=== PATIENT | female | born 1970 | race Caucasian/White ===

== ENCOUNTER → 2017-05-20 | Outpatient (CLI) | payer BC ==
--- NOTE | 2017-05-20 16:41 | CONS ---
CONSULTATION This patient is a 46-year-old lady who has been evaluated in the sleep center for possible obstructive sleep apnea-hypopnea syndrome. HISTORY OF PRESENT ILLNESS/SLEEP-WAKE EVALUATION: Patient's usual sleep schedule is from 11 p.m. to 7 a.m. She has more than 3 times awakenings from sleep with snoring and witnessed episodes of stopped breathing. She has episodes of nocturia during the night. During the day she has some questionable problem with memory and concentration. [place] Sleepiness Scale is in normal range, 6. She usually does not take naps during the day. PAST MEDICAL HISTORY: 1. Hypertension. 2. Hyperlipidemia. 3. Cysts in ovary. PAST SURGICAL HISTORY: 1. Surgery for right hip fracture. 2. Left ACL. 3. Uterus ablation. MEDICATIONS: 1. Metformin. 2. Lipitor. 3. Prilosec. 4. Lisinopril hydrochlorothiazide. SOCIAL HISTORY: Negative for smoking. Alcohol consumption occasional. REVIEW OF SYSTEMS: Awakenings from sleep. FAMILY HISTORY: Hypertension, heart problems, hyperlipidemia, snoring. PHYSICAL EXAMINATION: This is a 46-year-old lady without distress. VITAL SIGNS: BP 135/77, HR 100, RR 16, height 5 feet 5 inches, weight 261, BMI 43.5. Neck 15 inches in circumference. Temperature 97.4, oxygen saturation on room air 96%. HEENT: PERRLA, EOMI. Evaluation of oropharynx showed tongue protrudes midline; practically normal position of soft palate, but tonsils are average size. Some restriction of nasal breathing. NECK: Supple. No JVD. Thyroid is not palpable. LUNGS: Clear to percussion and to auscultation. Good air exchange. No wheezing or rhonchi. HEART: S1, S2 irregularly irregular. ABDOMEN: Obese. EXTREMITIES: No clubbing or cyanosis. CELLOPHANE BAG MACHINE OPERATOR: Awake, alert and oriented x3. Cranial nerves 2 to 7 intact. There is no fasciculation or atrophy noted. No focal deficits observed. IMPRESSION: 1. Snoring, witnessed episodes of stopped breathing during sleep, awakenings from sleep with nocturia, restriction of nasal breathing; obstructive sleep apnea- hypopnea syndrome. 2. Hypertension. 3. Acid reflux. 4. Cysts in ovary. 5. Hyperlipidemia. 6. Status post surgery for left ACL. 7. Status post right humerus fracture with surgical treatment. 8. Status post uterus ablation. PLAN: 1. Polysomnography for evaluation of patient's breathing during sleep. 2. CPAP/BiPAP titration if sleep study confirms obstructive sleep apnea-hypopnea syndrome. 3. Preferable position during sleep on the side. 4. No driving if patient feels any sleepiness. Patient is aware of civil and criminal liability for unsafe driving. 5. I will see patient for follow-up visit to explain results of testing and following plan. Thank you very much for referring this patient for consultation. Sincerely, Chester Sanchez MD, PhD, FAASM Diplomat of [employer] Board of [employer] Medicine Art Historian of [facility] [place] MMODL / IJN: [id number] /
== END | disposition home or self-care (01) ==
LOC: SLEEP 13:59
PROVIDERS: ATTEND Internal Medicine
DX: G47.33 Obstructive sleep apnea (adult) (pediatric) (principal); I10 Essential (primary) hypertension; K21.9 Gastro-esophageal reflux disease without esophagitis; E78.5 Hyperlipidemia, unspecified; N83.201 Unspecified ovarian cyst, right side; N83.202 Unspecified ovarian cyst, left side; Z98.890 Other specified postprocedural states
CPT/HCPCS: 99211

== ENCOUNTER → 2017-08-19 | Outpatient (CLI) | payer BC ==
--- NOTE | 2017-08-19 11:55 | PN ---
PROGRESS NOTE DATE OF SERVICE: 08/19/2017 A 46-year-old lady has been followed in sleep center for treatment of obstructive sleep apnea-hypopnea syndrome. Recently patient home sleep apnea test, which showed severe sleep apnea. I discussed results of this test with the patient in details. The patient had CPAP and BiPAP titration in the sleep center. The best results was reached on the pressure 19/15 cm of water. Subsequently, patient was started on treatment with BiPAP at home with the pressure 19/15 cm of water. The patient is trying to use equipment every night, but has difficulties to tolerate pressure, especially when she wakes up. She feels the pressure is too much and she stays in bed for some periods of time with the machine, but without sleep. [place] Sleepiness Scale today is 8. I checked the patient's PAP unit maximal inspiratory pressure 19, minimal expiratory pressure is 15. Usage is 100% of the time more than 4 hours, average 4.8 hours. Leak is 5 L/minute which is perfect. Apnea-hypopnea index for the last night is only 3.3 per hour. For the last month, it is 5.0. MEDICATIONS: Metformin, Lipitor, Prilosec, lisinopril. PHYSICAL EXAM: During physical exam, patient in no distress. VITAL SIGNS: BP 134/64, HR 88, RR 16, weight 266, temp 97.6, oxygen saturation room air 98% HEENT PERRLA, EOMI. Oropharynx extremely low position of soft palate. NECK: Supple, no JVD. Thyroid is not palpable. LUNGS: Clear to percussion and to auscultation. Good air exchange. No wheezing or rhonchi. HEART: S1, S2 regular. No murmurs, gallops, or rubs. ABDOMEN: Obese. EXTREMITIES: No clubbing or cyanosis. LEAN CONSULTANT: Awake, alert, and oriented X3. Cranial nerves 2 to 7 intact. There is no fasciculation or atrophy. noted. No focal deficits observed. IMPRESSION: 1. Severe obstructive sleep apnea-hypopnea syndrome; apnea-hypopnea index 40.3 with oxygen saturation of 77%. The patient demonstrated 100% compliance with treatment benefitting from treatment, but has some difficulties with tolerating pressure. 2. Hypertension. 3. Hyperlipidemia. 4. Obesity. 5. Ovarian cyst. 6. Status post uterus ablation. 7. Status post right fracture surgical treatment. 8. Status post surgical treatment of left ACL. PLAN: 1. I decreased minimal expiratory pressure to 6 cm of water. Maximal inspiratory pressure 19 and pressure support will continue to be 4. I will keep ramp at the same time for 40 minutes. 2. Patient will continue to use equipment every night. 3. Losing weight. 4. Sleep hygiene with regular time in bed for at least 8 hours. 5. No driving if feeling sleepiness. Thank you very much for allowing me to participate in management of your patient. Sincerely, Chester Sanchez MD, PhD, FAASM Diplomat of [employer] Medicine Fitness Technician of [facility] [place] MMODL / WAYLONN: [id number] /
== END | disposition home or self-care (01) ==
LOC: SLEEP 10:26
PROVIDERS: ATTEND Internal Medicine
DX: G47.33 Obstructive sleep apnea (adult) (pediatric) (principal); I10 Essential (primary) hypertension; E78.5 Hyperlipidemia, unspecified; E66.9 Obesity, unspecified; N83.209 Unspecified ovarian cyst, unspecified side; Z98.890 Other specified postprocedural states

== ENCOUNTER → 2017-10-14 | Outpatient (CLI) | payer BC ==
--- NOTE | 2017-10-14 11:30 | SFUN ---
SLEEP STUDY FOLLOW UP NOTE A 47-year-old lady has been followed in Sleep Center for treatment of severe obstructive sleep apnea-hypopnea syndrome. During previous visit, she has had some problem with the usage of her BiPAP equipment and I changed the pressure down from 19/15 cm of water to minimal expiratory pressure 6 and maximal inspiratory 19 with a pressure support of 4. After the changes of the regimen in the machine, patient feels much better. She is able to use her machine without problems. She is sleeping better and she feels better during the day. Today her [place] Sleepiness Scale is 6. I checked her BiPAP unit. Regimen in the machine as I described above. Average pressure in the range between 13.4/19.4. With this regimen apnea-hypopnea index for the last month 4.1, which is in normal range. Originally her apnea-hypopnea index was around 40 per hour. No leak at all, 0 L/minute. Usage is 100% of the time more than 4 hours. Average usage 5.1 hours. MEDICATIONS: Metformin, Lipitor, Prilosec, lisinopril. PHYSICAL EXAM: GENERAL Patient in no distress. VITAL SIGNS BP 129/85, HR 68, RR 16, height 5 feet 5-1/2, weight 264.2. The patient lost weight about 2 pounds. Temperature 98.3, oxygen saturation room air 95%. HEENT PERRLA, EOMI, evaluation of oropharynx showed extremely low position of soft palate. NECK Supple, no JVD. Thyroid is not palpable. LUNGS Clear to percussion and to auscultation. Good air exchange. No wheezing or rhonchi. HEART S1, S2 regular. No murmurs, gallops, or rubs. ABDOMEN Obese. Soft and nontender. Bowel sounds are present. No organomegaly appreciated. EXTREMITIES No clubbing or cyanosis. PIGMENT PUMPER Awake, alert, and oriented X3. Cranial nerves 2 to 7 intact. There is no fasciculation or atrophy. noted. No focal deficits observed. IMPRESSION: 1. Severe obstructive sleep apnea-hypopnea syndrome; apnea-hypopnea index 40.3 with oxygen desaturation to 77%. The patient demonstrated 100% compliance with treatment benefitting from treatment: No problems with the usage of CPAP or BiPAP equipment at the present time after changes of the pressure. 2. Hypertension. 3. Obesity. 4. Hyperlipidemia. 5. History of ovarian cyst. 6. Status post uterus ablation. 7. Status post surgical treatment of left knee ACL problems. PLAN: 1. Patient will continue to use BiPAP equipment with the same regimen. 2. Losing weight. 3. Sleep hygiene with regular time in bed for at least 7-1/2 hours. 4. No driving if feeling sleepiness. 5. Prescription for all necessary BiPAP supplies. Thank you very much for allowing me to participate in management of your patient. Sincerely, Chester Sanchez MD, PhD, FAASM Diplomat of [place] [employer]ties [employer] [employer] of Internal Medicine Gas Inspector of [facility] [place] MMODL / IJN: [id number] /
== END | disposition home or self-care (01) ==
LOC: SLEEP 10:12
PROVIDERS: ATTEND Internal Medicine
DX: G47.33 Obstructive sleep apnea (adult) (pediatric) (principal); I10 Essential (primary) hypertension; E66.9 Obesity, unspecified; E78.5 Hyperlipidemia, unspecified; Z87.42 Personal history of other diseases of the female genital tract; Z98.890 Other specified postprocedural states; Z79.84 Long term (current) use of oral hypoglycemic drugs; Z79.899 Other long term (current) drug therapy; Z99.89 Dependence on other enabling machines and devices

== ENCOUNTER 2017-12-06 22:37 | Emergency (ER) | payer BC ==
[2017-12-07 00:15] LABS: Basophils % (A) 0 %; Eosinophils # (A) 0.2 k/uL (0-0.7); Eosinophils % (A) 2 %; HCT 40.5 % (34.0-46.0); HGB 13.2 gm/dL (11.4-16.0); Lymphocytes # (A) 2.7 k/uL (1.0-4.8); Lymphocytes % (A) 32 %; MCH 27.9 pg (25.0-35.0); MCHC 32.7 g/dL (31.0-37.0); MCV 85.6 fL (80.0-100.0); Mean Platelet Volume 6.8; Monocytes # (A) 0.5 k/uL (0-1.0); Monocytes % (A) 5 %; Neutrophils % (A) 59 %; Platelet Count 313 k/uL (150-450); RBC 4.73 m/uL (3.80-5.40); RDW 14.4 % (11.5-15.5); WBC 8.5 k/uL (3.8-10.6)
--- NOTE | 2017-12-07 00:22 | XR ---
EXAMINATION TYPE: XR chest 2V DATE OF EXAM: 12/07/2017 COMPARISON: NONE HISTORY: Irregular heartbeat TECHNIQUE: Frontal and lateral views of the chest are obtained. FINDINGS: Heart and mediastinum appear normal. There is some linear density in the right upper lobe. Costophrenic angles are clear. There are chest leads. Bony thorax is intact. IMPRESSION: Hiatal hernia. Subsegmental atelectasis in the right upper lobe. Normal heart.
[2017-12-07 00:24] LABS: ALT 24 U/L (9-52); AST 20 U/L (14-36); Albumin 4.3 g/dL (3.5-5.0); Alkaline Phosphatase 77 U/L (38-126); Anion Gap 15 mmol/L; Blood Urea Nitrogen 15 mg/dL (7-17); Calcium 9.8 mg/dL (8.4-10.2); Carbon Dioxide 25 mmol/L (22-30); Chloride 103 mmol/L (98-107); Glucose 98 mg/dL (74-99); Magnesium 2.2 mg/dL (1.6-2.3); Potassium 4.5 mmol/L (3.5-5.1); Sodium 143 mmol/L (137-145); Total Bilirubin 0.3 mg/dL (0.2-1.3); Total Protein 6.9 g/dL (6.3-8.2)
[2017-12-07 00:34] LABS: Partial Thromboplastin Time 23.8 sec (22.0-30.0); Prothrombin Time 9.5 sec (9.0-12.0)
--- NOTE | 2017-12-07 00:34 | ED ---
Arrhythmia/Palpitations HPI - General Chief Complaint: Arrhythmia/Palpitations Stated Complaint: FAST HEARTBEAT Time Seen by Provider: 12/07/17 00:01 Source: patient Mode of arrival: wheelchair Limitations: no limitations - History of Present Illness Initial Comments: This patient is a 47-year-old woman who presents to be evaluated for feeling like she is having some palpitations. She states this is been coming intermittently for the past couple of days. She noticed it tonight when she was watching a movie. Patient states that it's funny feeling in her chest. She felt like her heart was beating a little fast. She felt like she had taken deep breath at one point. The patient denies jazmyn chest pain. No diaphoresis , nausea or vomiting. MD Complaint: palpitations -: days(s) Context: occurred during rest Associated Symptoms: denies other symptoms - Related Data Allergies Allergy/AdvReac Type Severity Reaction Status Date / Time No Known Allergies Allergy Verified 12/06/17 22:50 Review of Systems ROS Statement: Those systems with pertinent positive or pertinent negative responses have been documented in the HPI. ROS Other: All systems not noted in ROS Statement are negative. Constitutional: Denies: fever Respiratory: Denies: cough, dyspnea, wheezes Cardiovascular: Reports: palpitations. Denies: chest pain, edema, syncope Gastrointestinal: Denies: abdominal pain, nausea, vomiting Genitourinary: Denies: dysuria Musculoskeletal: Denies: back pain Skin: Denies: rash Neurological: Denies: headache, weakness, numbness Past Medical History Past Medical History: Diabetes Mellitus, GERD/Reflux, Hyperlipidemia, Hypertension History of Any Multi-Drug Resistant Organisms: None Reported Past Surgical History: Uterine Ablation Additional Past Surgical History / Comment(s): right humerus ORIF. left acl repair. bilateral knee arthroscopy. Past Psychological History: No Psychological Hx Reported Smoking Status: Never smoker Past Alcohol Use History: Rare Past Drug Use History: None Reported General Exam Limitations: no limitations General appearance: alert, in no apparent distress, obese Head exam: Present: atraumatic, normocephalic Eye exam: Present: normal appearance. Absent: scleral icterus, conjunctival injection ENT exam: Present: normal oropharynx Respiratory exam: Present: normal lung sounds bilaterally. Absent: respiratory distress, wheezes, rales, rhonchi, stridor Cardiovascular Exam: Present: regular rate, normal rhythm, normal heart sounds. Absent: systolic murmur, diastolic murmur, rubs, gallop GI/Abdominal exam: Present: soft. Absent: distended, tenderness, guarding, rebound Extremities exam: Present: normal inspection, normal capillary refill. Absent: pedal edema, calf tenderness Back exam: Present: normal inspection. Absent: CVA tenderness (R), CVA tenderness (L) Neurological exam: Present: alert Skin exam: Present: warm, dry, intact, normal color. Absent: rash Course Vital Signs 12/06/17 22:45 Temperature 97.9 F Pulse Rate 90 Respiratory 16 Rate Blood Pressure 123/79 O2 Sat by Pulse 97 Oximetry Medical Decision Making - Lab Data Result diagrams: 12/07/17 00:01 12/07/17 00:01 Lab Results 12/07/17 12/07/17 12/07/17 Range/Units 00:01 00:01 00:01 WBC 8.5 (3.8-10.6) k/uL RBC 4.73 (3.80-5.40) m/uL Hgb 13.2 (11.4-16.0) gm/dL Hct 40.5 (34.0-46.0) % MCV 85.6 (80.0-100.0) fL MCH 27.9 (25.0-35.0) pg MCHC 32.7 (31.0-37.0) g/dL RDW 14.4 (11.5-15.5) % Plt Count 313 (150-450) k/uL Neutrophils % 59 % Lymphocytes % 32 % Monocytes % 5 % Eosinophils % 2 % Basophils % 0 % Neutrophils # 5.0 (1.3-7.7) k/uL Lymphocytes # 2.7 (1.0-4.8) k/uL Monocytes # 0.5 (0-1.0) k/uL Eosinophils # 0.2 (0-0.7) k/uL Basophils # 0.0 (0-0.2) k/uL PT (9.0-12.0) sec INR (<1.2) APTT (22.0-30.0) sec Sodium 143 (137-145) mmol/L Potassium 4.5 (3.5-5.1) mmol/L Chloride 103 (98-107) mmol/L Carbon Dioxide 25 (22-30) mmol/L Anion Gap 15 mmol/L BUN 15 (7-17) mg/dL Creatinine 0.50 L (0.52-1.04) mg/dL Est GFR (CKD-EPI)AfAm >90 (>60 ml/min/1.73 sqM) Est GFR (CKD-EPI)NonAf >90 (>60 ml/min/1.73 sqM) Glucose 98 (74-99) mg/dL Calcium 9.8 (8.4-10.2) mg/dL Magnesium 2.2 (1.6-2.3) mg/dL Total Bilirubin 0.3 (0.2-1.3) mg/dL AST 20 (14-36) U/L ALT 24 (9-52) U/L Alkaline Phosphatase 77 (38-126) U/L Total Creatine Kinase 69 (30-135) U/L CK-MB (CK-2) 0.9 (0.0-2.4) ng/mL CK-MB (CK-2) Rel Index 1.3 Troponin I <0.012 (0.000-0.034) ng/mL Total Protein 6.9 (6.3-8.2) g/dL Albumin 4.3 (3.5-5.0) g/dL TSH (0.465-4.680) mIU/L 12/07/17 12/07/17 Range/Units 00:01 00:01 WBC (3.8-10.6) k/uL RBC (3.80-5.40) m/uL Hgb (11.4-16.0) gm/dL Hct (34.0-46.0) % MCV (80.0-100.0) fL MCH (25.0-35.0) pg MCHC (31.0-37.0) g/dL RDW (11.5-15.5) % Plt Count (150-450) k/uL Neutrophils % % Lymphocytes % % Monocytes % % Eosinophils % % Basophils % % Neutrophils # (1.3-7.7) k/uL Lymphocytes # (1.0-4.8) k/uL Monocytes # (0-1.0) k/uL Eosinophils # (0-0.7) k/uL Basophils # (0-0.2) k/uL PT 9.5 (9.0-12.0) sec INR 1.0 (<1.2) APTT 23.8 (22.0-30.0) sec Sodium (137-145) mmol/L Potassium (3.5-5.1) mmol/L Chloride (98-107) mmol/L Carbon Dioxide (22-30) mmol/L Anion Gap mmol/L BUN (7-17) mg/dL Creatinine (0.52-1.04) mg/dL Est GFR (CKD-EPI)AfAm (>60 ml/min/1.73 sqM) Est GFR (CKD-EPI)NonAf (>60 ml/min/1.73 sqM) Glucose (74-99) mg/dL Calcium (8.4-10.2) mg/dL Magnesium (1.6-2.3) mg/dL Total Bilirubin (0.2-1.3) mg/dL AST (14-36) U/L ALT (9-52) U/L Alkaline Phosphatase (38-126) U/L Total Creatine Kinase (30-135) U/L CK-MB (CK-2) (0.0-2.4) ng/mL CK-MB (CK-2) Rel Index Troponin I (0.000-0.034) ng/mL Total Protein (6.3-8.2) g/dL Albumin (3.5-5.0) g/dL TSH 1.660 (0.465-4.680) mIU/L Disposition Clinical Impression: Palpitations Disposition: HOME SELF-CARE Condition: Good Instructions: Palpitations (ED) Is patient prescribed a controlled substance at d/c from ED?: No Referrals: Sergio Teague MD [Primary Care Provider] - 1-2 days
[2017-12-07 00:41] LABS: Creatine Kinase 69 U/L (30-135)
[2017-12-07 01:01] LABS: Creatine Kinase MB 0.9 ng/mL (0.0-2.4); Troponin I <0.012 ng/mL (0.000-0.034)
[2017-12-07 01:57] VITALS: BP 110/65; PULSE 80; RESP 18; TEMP 98.4
== END 2017-12-07 01:57 | disposition home or self-care (01) ==
LOC: EC 22:37
DX: R00.2 Palpitations (principal); E66.9 Obesity, unspecified; Z68.39 Body mass index [BMI] 39.0-39.9, adult
CPT/HCPCS: 36415; 71046; 80053; 82550; 82553; 83735; 84443; 84484; 85025; 85610; 85730; 93005; 99285

== ENCOUNTER → 2018-07-07 | Outpatient (CLI) | payer BC ==
--- NOTE | 2018-07-07 15:47 | SFUN ---
SLEEP CENTER FOLLOW UP NOTE DATE OF SERVICE: 07/07/2018 A 47-year-old lady who has been followed in the Sleep Center for treatment of obstructive sleep apnea-hypopnea syndrome. Patient continued to use his CPAP equipment every night with a full-face mask. Sometimes she has problems related to the pressure in the machine. Otherwise, she sleeps better. I checked her BiPAP unit. Minimal expiratory pressure of 6, maximal inspiratory pressure of 19, most of the time pressure in the range of 13.3/9.3. Usage is 100% of the time, 27/30 nights more than 4 hours, average 5.2 hours per night. Leak is 18 L/minute which is normal range for the full-face mask. Apnea-hypopnea index 3.4, which is normal. MEDICATIONS: Metformin, Lipitor, Prilosec, lisinopril. PHYSICAL EXAM: Patient in no distress, BP 130/70, HR 82, RR 16, height 5, 5-1/2, weight 253 pounds, which is 10 pounds less than during the previous visit. Temperature 97.7, oxygen saturation at room air 97%. OROPHARYNX: Extremely low position of soft palate. ABDOMEN: Obese. Neck Supple, no JVD. Thyroid is not palpable. LUNGS Clear to percussion and to auscultation. Good air exchange. No wheezing or rhonchi. HEART S1, S2 regular. No murmurs, gallops, or rubs. EXTREMITIES No clubbing or cyanosis. SYSTEMS TESTING LABORATORY TECHNICIAN Awake, alert, and oriented X3. Cranial nerves 2 to 7 intact. There is no fasciculation or atrophy. noted. No focal deficits observed. IMPRESSION: 1. Obstructive sleep apnea-hypopnea syndrome on control with BiPAP. Patient demonstrated great compliance with treatment benefitting from treatment. 2. Hypertension. 3. Obesity. 4. Hyperlipidemia. 5. History of ovarian cyst. 6. Status post uterine ablation. 7. Status post surgical treatment of left knee ACL problems. PLAN: 1. I will decrease maximal inspiratory pressure down to 14 cm of water. 2. The patient will continue to use BiPAP equipment every night for the whole night. 3. Continue losing weight. 4. Sleep hygiene with regular time in bed for at least 8 hours. 5. No driving if feeling any sleepiness. 6. Follow up visit in 6 months. Thank you very much for allowing me to participate in the management of your patient. Sincerely, Chester Sanchez MD, PhD, FAASM Diplomat of [employer] Specialties [employer] [place] Board of Internal Medicine Handle Assembler of [facility] [place] SHANT / MARCELO: [id number] /
== END ==
LOC: SLEEP 14:16
PROVIDERS: ATTEND Internal Medicine
DX: G47.33 Obstructive sleep apnea (adult) (pediatric) (principal); I10 Essential (primary) hypertension; E66.9 Obesity, unspecified; E78.5 Hyperlipidemia, unspecified; Z98.890 Other specified postprocedural states; Z87.448 Personal history of other diseases of urinary system; Z99.89 Dependence on other enabling machines and devices; Z79.899 Other long term (current) drug therapy; Z79.84 Long term (current) use of oral hypoglycemic drugs

== ENCOUNTER → 2019-07-06 | Outpatient (CLI) | payer BC ==
--- NOTE | 2019-07-06 21:34 | PN ---
PROGRESS NOTE DATE OF SERVICE: 07/06/2019 48-year-old lady who has been followed in the Sleep Center for treatment of obstructive sleep apnea-hypopnea syndrome. The patient continued to use show CPAP equipment every night for the whole night without significant problems related to mask fitting or humidification. She lost about 50 pounds and then she gained a little bit and presently she is in the range of 40 pounds less than it was during the previous visit. [place] Sleepiness Scale today is 4, which is perfect. I checked her BiPAP unit. Range of the pressure maximal inspiratory pressure 14, minimal expiratory pressure of 6 with a pressure support of 4, average pressure is 13/9. Leak is 11 L/minute, which is acceptable. Apnea-hypopnea index for the last month 4.2, which is normal. MEDICATIONS: Lipitor, metformin, Prilosec, lisinopril. PHYSICAL EXAM: Patient in no distress. VITAL SIGNS: BP 125/75, HR 96, RR 16, height 5 feet 5 inches, weight 213.4 pounds, temperature 98.2, oxygen saturation at room air 96%. Oropharynx extremely low soft palate, Mallampati 4. NECK: Supple, no JVD. Thyroid is not palpable. LUNGS: Clear to percussion and to auscultation. Good air exchange. No wheezing or rhonchi. HEART: S1, S2 regular. No murmurs, gallops, or rubs. ABDOMEN: Obese. Soft and nontender. Bowel sounds are present. No organomegaly appreciated. EXTREMITIES: No clubbing or cyanosis. BUSSER: Awake, alert, and oriented X3. Cranial nerves 2 to 7 intact. There is no fasciculation or atrophy. noted. No focal deficits observed. IMPRESSION: 1. Obstructive sleep apnea-hypopnea syndrome. The patient demonstrated great compliance with treatment on BiPAP benefitting from treatment. 2. Hypertension. 3. Obesity, patient lost about 40 pounds since previous visit. 4. Hyperlipidemia. 5. History of ovarian cyst. 6. Status post uterine ablation. 7. Status post surgical treatment of left knee ACL problems. PLAN: 1. The patient will continue to use BiPAP in automatic regimen every night for the whole night. 2. The patient will continue to lose weight. 3. Sleep hygiene with regular time in bed for 7-1/2 to hours. 4. No driving if feeling sleepiness. 5. Maintain all necessary prescriptions including mask, tube and filters. 6. Followup visit in 1 year or earlier if patient has any problems or if she will lose significant amount of weight and if she has any difficulties with the machine. Thank you very much for allowing me to participate in management of your patient. Sincerely, Chester Sanchez MD, PhD, FAASM Diplomat of [employer] Specialties [employer] Board of Internal Medicine Fisher Trawl Line of [facility] [place] MMODL / WAYLONN: [id number] /
== END | disposition home or self-care (01) ==
LOC: SLEEP 15:38
PROVIDERS: ATTEND Internal Medicine
DX: G47.33 Obstructive sleep apnea (adult) (pediatric) (principal); I10 Essential (primary) hypertension; E66.9 Obesity, unspecified; E78.5 Hyperlipidemia, unspecified; Z87.42 Personal history of other diseases of the female genital tract; Z98.890 Other specified postprocedural states; Z99.89 Dependence on other enabling machines and devices; Z79.84 Long term (current) use of oral hypoglycemic drugs; Z79.899 Other long term (current) drug therapy

== ENCOUNTER → 2020-07-11 | Outpatient (CLI) | payer BC ==
--- NOTE | 2020-07-11 12:28 | SFUN ---
SLEEP CENTER FOLLOW UP NOTE DATE OF SERVICE: 07/11/2020 A 49-year-old lady who has been followed in the Sleep Center for treatment of obstructive sleep apnea-hypopnea syndrome. Patient continues to use her BiPAP equipment every night but sometimes to wake up in the middle of the night and may not use equipment on the second part of the night. [place] Sleepiness Scale today is 4, which is totally normal. I checked her BiPAP unit, minimal EPAP pressure of 6, maximal IPAP pressure of 14, average pressure 12.8/8.8, pressure support of 4. Usage is 27/30 nights, average of hours per night. Leak is 12 L/minute which is borderline. Apnea-hypopnea index is 3.1, which is normal. MEDICATIONS: Metformin 500 mg 3 times a day, Famotidine 20 mg twice a day, lisinopril- hydrochlorothiazide 10-12.5 mg once a day, Lipitor 20 mg once a day. PHYSICAL EXAM: Patient in no distress. BP 100/56, HR 87, RR 16, height 5, 5-1/2 inches, weight 251.6, BMI 41.1, temperature 96.9, oxygen saturation at room air 97%. OROPHARYNX: Extremely low position of soft palate. Mallampati 4. ABDOMEN: Obese. NECK: Supple, no JVD. Thyroid is not palpable. LUNGS: Clear to percussion and to auscultation. Good air exchange. No wheezing or rhonchi. HEART: S1, S2 regular. No murmurs, gallops, or rubs. EXTREMITIES: No clubbing or cyanosis. SODIUM CHLORITE OPERATOR: Awake, alert, and oriented X3. Cranial nerves 2 to 7 intact. There is no fasciculation or atrophy. noted. No focal deficits observed. IMPRESSION: 1. Obstructive sleep apnea-hypopnea syndrome. Patient demonstrated good compliance, benefitting from treatment. 2. Obesity, patient increased her weight on about 38 pounds since her previous visit. 3. Hypertension. 4. Hyperlipidemia. 5. Acid reflex. 6. History of ovarian cyst. 7. Status post uterine ablation. 8. Status post surgical treatment of left knee, ACL problems. PLAN: 1. I changed the pressure in BiPAP unit and decreased minimal expiratory pressure to 4 cm of water. 2. Patient will continue to use PAP equipment every night for the whole night. 3. Sleep hygiene with regular time in bed for at least 7-1/2 to 8 hours. 4. Precautions related to driving. No driving if feeling sleepiness. 5. I will maintain all necessary prescription for PAP supplies including mask, tube, filters. 6. Watching weight. 7. No driving if feeling sleepiness. 8. Followup visit in 6 months or earlier if patient has any problems. Thank you very much for allowing me to participate in the management of your patient. Sincerely, Chester Sanchez MD, PhD, FAASM Diplomat of [employer] Board of Internal Medicine Job Coach/Job Developer of [facility] [place] MMODL / IJN: [id number] /
== END | disposition home or self-care (01) ==
LOC: SLEEP 11:16
PROVIDERS: ATTEND Internal Medicine
DX: G47.33 Obstructive sleep apnea (adult) (pediatric) (principal); E66.9 Obesity, unspecified; I10 Essential (primary) hypertension; E78.5 Hyperlipidemia, unspecified; K21.9 Gastro-esophageal reflux disease without esophagitis; Z87.42 Personal history of other diseases of the female genital tract; Z98.890 Other specified postprocedural states; Z99.89 Dependence on other enabling machines and devices; Z79.84 Long term (current) use of oral hypoglycemic drugs; Z79.899 Other long term (current) drug therapy; Z68.41 Body mass index [BMI] 40.0-44.9, adult

== ENCOUNTER 2020-12-13 17:46 | Emergency (ER) | payer BC ==
[2020-12-13 18:08] VITALS: BP 130/71; PULSE 108; RESP 18; TEMP 98
[2020-12-13] MEDS ORDERED: KETOROLAC 15 MG/ML 1 ML VIAL IVP STA (18:58)
--- NOTE | 2020-12-13 19:16 | ED ---
Female Urogenital HPI - General Chief complaint: Urogenital Stated complaint: revisit - blood clots in urine Time Seen by Provider: 12/13/20 18:30 Source: patient, RN notes reviewed Mode of arrival: ambulatory Limitations: no limitations - History of Present Illness Initial comments: This is a 50-year-old female blood clots or painful anywhere from 4-6/10 severity she has some left flank pain. She started doctor today was placed on Cipro and Flomax had a KUB done. She presents today with persistent pain past the blood clots in the left CVA area pain. No nausea no vomiting no fevers chills sweats or other symptoms. MD Complaint: dysuria - Related Data Home Medications Medication Instructions Recorded Confirmed Atorvastatin [Lipitor] 20 mg PO HS 12/13/20 12/13/20 Ciprofloxacin HCl [Cipro] 500 mg PO Q12H 12/13/20 12/13/20 Famotidine [Pepcid] 20 mg PO BID 12/13/20 12/13/20 Lisinopril-Hctz 10-12.5 mg 1 tab PO DAILY 12/13/20 12/13/20 [Zestoretic 10-12.5] Tamsulosin [Flomax] 0.4 mg PO DAILY 12/13/20 12/13/20 metFORMIN HCL [Glucophage] 500 mg PO TID 12/13/20 12/13/20 Previous Rx's Medication Instructions Recorded Ketorolac [Toradol] 10 mg PO Q6HR #20 tab 12/13/20 Phenazopyridine HCl [Pyridium] 100 mg PO TID #15 tab 12/13/20 Allergies Allergy/AdvReac Type Severity Reaction Status Date / Time No Known Allergies Allergy Verified 12/13/20 19:22 Review of Systems ROS Statement: Those systems with pertinent positive or pertinent negative responses have been documented in the HPI. ROS Other: All systems not noted in ROS Statement are negative. Past Medical History Past Medical History: Diabetes Mellitus, GERD/Reflux, Hyperlipidemia, Hypertension History of Any Multi-Drug Resistant Organisms: None Reported Past Surgical History: Uterine Ablation Additional Past Surgical History / Comment(s): right humerus ORIF. left acl repair. bilateral knee arthroscopy. Past Psychological History: No Psychological Hx Reported Smoking Status: Never smoker Past Alcohol Use History: Rare Past Drug Use History: None Reported General Exam - General Exam Comments Initial Comments: This is a well-developed well-nourished awake alert oriented 3 female Limitations: no limitations General appearance: alert, anxious, in distress Head exam: Present: atraumatic, normocephalic, normal inspection Eye exam: Present: normal appearance, PERRL, EOMI. Absent: scleral icterus, conjunctival injection, periorbital swelling ENT exam: Present: normal exam, mucous membranes moist Neck exam: Present: normal inspection. Absent: tenderness, meningismus, lymphadenopathy Respiratory exam: Present: normal lung sounds bilaterally. Absent: respiratory distress, wheezes, rales, rhonchi, stridor Cardiovascular Exam: Present: regular rate, normal rhythm, normal heart sounds. Absent: systolic murmur, diastolic murmur, rubs, gallop, clicks GI/Abdominal exam: Present: soft, tenderness, normal bowel sounds. Absent: distended, guarding, rebound, rigid Extremities exam: Present: normal inspection, full ROM, normal capillary refill. Absent: tenderness, pedal edema, joint swelling, calf tenderness Back exam: Present: normal inspection, CVA tenderness (L) Neurological exam: Present: alert, oriented X3, CN II-XII intact Psychiatric exam: Present: normal affect, normal mood Skin exam: Present: warm, dry, intact, normal color. Absent: rash Course Vital Signs 12/13/20 18:05 Temperature 98 F Pulse Rate 108 H Respiratory 18 Rate Blood Pressure 130/71 O2 Sat by Pulse 94 L Oximetry Medical Decision Making - Medical Decision Making Reassessed the patient she feels much improved at this time the presentation is consistent likely with a cystitis a passed stone cannot be ruled out. H will co ntinue with her current medication prescribed by her doctor as well as she will be placed on a short course of Toradol and Pyridium. - Lab Data Result diagrams: 12/13/20 19:08 12/13/20 19:08 Lab Results 12/13/20 12/13/20 12/13/20 Range/Units 19:08 19:08 19:08 WBC 8.7 (3.8-10.6) k/uL RBC 4.31 (3.80-5.40) m/uL Hgb 12.8 (11.4-16.0) gm/dL Hct 37.3 (34.0-46.0) % MCV 86.4 (80.0-100.0) fL MCH 29.6 (25.0-35.0) pg MCHC 34.2 (31.0-37.0) g/dL RDW 14.2 (11.5-15.5) % Plt Count 270 (150-450) k/uL MPV 7.3 Neutrophils % 72 % Lymphocytes % 20 % Monocytes % 5 % Eosinophils % 2 % Basophils % 0 % Neutrophils # 6.3 (1.3-7.7) k/uL Lymphocytes # 1.8 (1.0-4.8) k/uL Monocytes # 0.4 (0-1.0) k/uL Eosinophils # 0.2 (0-0.7) k/uL Basophils # 0.0 (0-0.2) k/uL Sodium 138 (137-145) mmol/L Potassium 3.9 (3.5-5.1) mmol/L Chloride 103 (98-107) mmol/L Carbon Dioxide 26 (22-30) mmol/L Anion Gap 9 mmol/L BUN 16 (7-17) mg/dL Creatinine 0.65 (0.52-1.04) mg/dL Est GFR (CKD-EPI)AfAm >90 (>60 ml/min/1.73 sqM) Est GFR (CKD-EPI)NonAf >90 (>60 ml/min/1.73 sqM) Glucose 120 H (74-99) mg/dL Calcium 9.7 (8.4-10.2) mg/dL Total Bilirubin 0.3 (0.2-1.3) mg/dL AST 21 (14-36) U/L ALT 20 (4-34) U/L Alkaline Phosphatase 102 (38-126) U/L Creatine Kinase 81 (30-135) U/L Total Protein 6.9 (6.3-8.2) g/dL Albumin 4.3 (3.5-5.0) g/dL Amylase 46 (30-110) U/L Lipase 182 (23-300) U/L Urine Color Light Red Urine Appearance Cloudy H (Clear) Urine pH 6.0 (5.0-8.0) Ur Specific [place] 1.021 (1.001-1.035) Urine Protein 2+ H (Negative) Urine Glucose (UA) Negative (Negative) Urine Ketones Negative (Negative) Urine Blood Large H (Negative) Urine Nitrite Negative (Negative) Urine Bilirubin Negative (Negative) Urine Urobilinogen <2.0 (<2.0) mg/dL Ur Leukocyte Esterase Large H (Negative) Urine RBC >182 H (0-5) /hpf Urine WBC >182 H (0-5) /hpf Urine WBC Clumps Few H (None) /hpf Urine Mucus Occasional H (None) /hpf - Radiology Data Radiology results: report reviewed (I did review the KUB done earlier was nonspecific CAT scan shows evidence of a renal stone on the left but no evidence of any ureteral stone. No hydronephrosis. Please see complete report), image reviewed Disposition Clinical Impression: Cystitis, Urinary tract infection, Renal calculus, left, Renal colic on left side Disposition: HOME SELF-CARE Condition: Good Instructions (If sedation given, give patient instructions): Urinary Tract In fection in Women (ED), Renal Colic (ED) Prescriptions: Phenazopyridine HCl [Pyridium] 100 mg PO TID #15 tab Ketorolac [Toradol] 10 mg PO Q6HR #20 tab Is patient prescribed a controlled substance at d/c from ED?: No Referrals: Sergio Teague MD [Primary Care Provider] - 1-2 days
[2020-12-13 19:40] LABS: Appearance,Urine Cloudy (Clear); Bilirubin,Urine Negative (Negative); Blood,Urine Large (Negative); Color,Urine Light Red; Glucose,Urine (UA) Negative (Negative); Ketones,Urine Negative (Negative); Leukocyte Esterase,Urine Large (Negative); Mucus,Urine Occasional /hpf; Nitrite,Urine Negative (Negative); Protein,Urine 2+ (Negative); RBC,Urine >182 /hpf (0-5); Specific Gravity,Urine 1.021 (1.001-1.035); Urobilinogen,Urine <2.0 mg/dL (<2.0); WBC,Urine >182 /hpf (0-5)
[2020-12-13 19:49] LABS: ALT 20 U/L (4-34); AST 21 U/L (14-36); African American GFR (CKD) >90 (>60 ml/min/1.73 sqM); Albumin 4.3 g/dL (3.5-5.0); Alkaline Phosphatase 102 U/L (38-126); Amylase 46 U/L (30-110); Anion Gap 9 mmol/L; Blood Urea Nitrogen 16 mg/dL (7-17); Calcium 9.7 mg/dL (8.4-10.2); Carbon Dioxide 26 mmol/L (22-30); Chloride 103 mmol/L (98-107); Creatine Kinase 81 U/L (30-135); Glucose 120 mg/dL (74-99); Lipase 182 U/L (23-300); Non-African American GFR(CKD) >90 (>60 ml/min/1.73 sqM); Potassium 3.9 mmol/L (3.5-5.1); Sodium 138 mmol/L (137-145); Total Bilirubin 0.3 mg/dL (0.2-1.3); Total Protein 6.9 g/dL (6.3-8.2)
--- NOTE | 2020-12-13 19:57 | CT ---
EXAMINATION TYPE: CT abdomen pelvis wo con DATE OF EXAM: 12/13/2020 COMPARISON: None HISTORY: Gross hematuria, history of stones. CT DLP: 980.1 mGycm Automated exposure control for dose reduction was used. Images obtained from the diaphragm to the floor the pelvis without contrast. Lung bases are clear. Th ere is no pleural effusion. There is hiatal hernia. Heart size is normal. There is no pericardial eff usion. Liver spleen pancreas gallbladder appear intact. The bile ducts are not dilated. There is no adrenal mass. Kidneys have normal size. There is 4 mm calculus interpolar left kidney. Th ere is 2 mm calculus lateral left kidney. There is no hydronephrosis. Ureters are not dilated. There is no retroperitoneal adenopathy. Bladder distends smoothly. There is no inguinal hernia. There is no free fluid in the pelvis. There is no evidence of thickened appendix. There is no mesenteric edema. There is no ascites or free air. There is no bowel obstruction. Lumbar vertebra have normal alignment. The posterior elements are intact. The bony pelvis is intact. Hip joints are intact. There is no hip dysplasia. IMPRESSION: Nonobstructing left renal calculi. Moderate-sized hiatal hernia. No acute abnormality of the abdomen pelvis.
[2020-12-13 20:12] LABS: Basophils % (A) 0 %; Eosinophils # (A) 0.2 k/uL (0-0.7); Eosinophils % (A) 2 %; HCT 37.3 % (34.0-46.0); HGB 12.8 gm/dL (11.4-16.0); Lymphocytes # (A) 1.8 k/uL (1.0-4.8); Lymphocytes % (A) 20 %; MCH 29.6 pg (25.0-35.0); MCHC 34.2 g/dL (31.0-37.0); MCV 86.4 fL (80.0-100.0); Mean Platelet Volume 7.3; Monocytes # (A) 0.4 k/uL (0-1.0); Monocytes % (A) 5 %; Neutrophils # (A) 6.3 k/uL (1.3-7.7); Neutrophils % (A) 72 %; Platelet Count 270 k/uL (150-450); RBC 4.31 m/uL (3.80-5.40); RDW 14.2 % (11.5-15.5); WBC 8.7 k/uL (3.8-10.6)
== END 2020-12-13 20:54 | disposition home or self-care (01) ==
LOC: EC 17:46
DX: N30.91 Cystitis, unspecified with hematuria (principal); N20.0 Calculus of kidney; E11.9 Type 2 diabetes mellitus without complications; E78.5 Hyperlipidemia, unspecified; I10 Essential (primary) hypertension; K21.9 Gastro-esophageal reflux disease without esophagitis; Z79.84 Long term (current) use of oral hypoglycemic drugs
CPT/HCPCS: 36415; 80053; 82150; 82550; 83690; 85025; 81001; 74176; 99284; 96374; J1885

== ENCOUNTER → 2020-12-13 | Outpatient (CLI) | payer BC ==
--- NOTE | 2020-12-13 19:13 | XR ---
EXAMINATION TYPE: XR KUB DATE OF EXAM: 12/13/2020 COMPARISON: NONE HISTORY: Pain TECHNIQUE: One view abdominal series FINDINGS: The osseous structures are intact. The bowel gas pattern is nonspecific. Hypertrophic change of the spine. IMPRESSION: 1. Nonspecific abdomen.
== END | disposition home or self-care (01) ==
LOC: RADXRMAIN 13:22
PROVIDERS: ATTEND Internal Medicine
DX: R10.9 Unspecified abdominal pain (principal)
CPT/HCPCS: 74018

== ENCOUNTER → 2021-02-05 | Outpatient (CLI) | payer BC ==
--- NOTE | 2021-02-05 21:45 | SFUN ---
SLEEP CENTER FOLLOW UP NOTE DATE OF SERVICE: 02/05/2021 50-year-old lady has been followed in Sleep Center for treatment of obstructive sleep apnea-hypopnea syndrome. Patient continued to use her CPAP equipment every night. Does not snore with the machine, getting her supplies in time. [place] Sleepiness Scale is close to the border of 9 today. I checked her BiPAP unit, maximal inspiratory pressure of 14 cm of water. Minimal expiratory pressure of 4 cm of water. Average pressure 12.2 or 8.2 cm of water. Usage for the last 6 months is 146 nights and 65 nights more than 4 hours with average usage is 3.9 hours per night. Leak is 8 L/minute which is acceptable. Apnea-hypopnea index is 4.7, which is in normal range. The patient has a tendency to fall asleep early in the evening and she gets up also quite early so it is sleeps from about 10:30-3:30/4:00 am. MEDICATIONS: Metformin 500 mg 3 times a day, Pepcid 20 mg twice a day, Lipitor 20 mg once a day, lisinopril, hydrochlorothiazide 10-12.5 mg once a day. PHYSICAL EXAMINATION: GENERAL: Patient in no distress. BP 129/66, HR 84, RR 15, height 5 feet 5-1/2 inches, weight 246 pounds. Body mass index 40.3. The patient has lost about 5 pounds since previous visit. Temperature 97.8, oxygen saturation at room air 98%. Oropharynx: Extremely low position of soft palate, Mallampati 4. NECK: Supple, no JVD. Thyroid is not palpable. LUNGS: Clear to percussion and to auscultation. Good air exchange. No wheezing or rhonchi. HEART: S1, S2 regular. No murmurs, gallops, or rubs. ABDOMEN: Obese. Soft and nontender. Bowel sounds are present. No organomegaly appreciated. EXTREMITIES: No clubbing or cyanosis. [employer]IC[employer] APPRENTICE: Awake, alert, and oriented X3. Cranial nerves 2 to 7 intact. There is no fasciculation or atrophy. noted. No focal deficits observed. IMPRESSION: 1. Obstructive sleep apnea-hypopnea syndrome. Patient demonstrated borderline compliance with treatment benefitting from treatment. 2. Possibly sleep advance syndrome. 3. Obesity. 4. Hypertension. 5. Hyperlipidemia. 6. Acid reflux. 7. History of ovarian cyst. 8. Status post uterine ablation. 9. Status post surgical treatment of left knee problems for ACL issues. PLAN: 1. Patient will continue to use PAP equipment every night for the whole night. 2. Sleep hygiene with regular time in bed for at least 7-1/2 to 8 hours. 3. Precautions related to driving. No driving if feeling sleepiness. 4. I will maintain all necessary prescription for PAP supplies including mask, tube, filters. 5. Watching weight. 6. Follow-up visit in 6 months or earlier if patient has any problems. I spent with the patient and paperwork more than 30 minutes. Thank you very much for allowing me to participate in management of your patient. Sincerely, Chester Sanchez MD, PhD, FAASM Diplomat of [place] [employer] [place] [employer] Corporate Relations Manager of [facility] [place] MMODL / WAYLONN: [id number] /
== END ==
LOC: SLEEP 14:46
PROVIDERS: ATTEND Internal Medicine
DX: G47.33 Obstructive sleep apnea (adult) (pediatric) (principal); E66.9 Obesity, unspecified; I10 Essential (primary) hypertension; E78.5 Hyperlipidemia, unspecified; K21.9 Gastro-esophageal reflux disease without esophagitis; Z68.41 Body mass index [BMI] 40.0-44.9, adult; Z79.84 Long term (current) use of oral hypoglycemic drugs; Z79.899 Other long term (current) drug therapy; Z87.42 Personal history of other diseases of the female genital tract; Z99.89 Dependence on other enabling machines and devices

== ENCOUNTER 2021-05-25 10:24 | Observation (INO) | payer BC ==
[2021-05-25] MEDS ORDERED: ONDANSETRON 4 MG/2 ML VIAL IVP STA (10:41)
[2021-05-25] MEDS ORDERED: MORPHINE SULFATE 4 MG/ML SYRINGE IV STA (10:59)
--- NOTE | 2021-05-25 11:01 | ED ---
General Adult HPI - General Chief complaint: Nausea/Vomiting/Diarrhea Stated complaint: covid+/abd pain Time Seen by Provider: 05/25/21 10:40 Source: patient Mode of arrival: ambulatory Limitations: no limitations - History of Present Illness Initial comments: Dictation was produced using [employer] dictation software. please excuse any grammatical, word or spelling errors. Chief Complaint: 50-year-old female presents emergency department for abdominal pain nausea vomiting diarrhea. History of Present Illness: 50-year-old female. She is instructed to come to the emergency department by her primary care physician, Dr. Teague. Patient is diagnosed: 1 week ago. Patient denies ever having had any respiratory symptoms within the last week. States that most of her symptoms are in her abdomen. She has had periumbilical abdominal pain with diarrhea. Denies any history of diverticulitis. She does have some mild constitutional symptoms but no obvious fevers. She has had some nausea and vomiting. No history of diverticulitis. States that her pain is severe. Reports that her diarrhea is nonbilious nonbloody. She has had symptoms of cold for the last 7 days. The ROS documented in this emergency department record has been reviewed and confirmed by me. Those systems with pertinent positive or negative responses have been documented in the HPI. All other systems are other negative and/or noncontributory. PHYSICAL EXAM: General Impression: Alert and oriented x3, acute distress secondary to pain HEENT: Normocephalic atraumatic, extra-ocular movements intact, pupils equal and reactive to light bilaterally, mucous membranes moist. Cardiovascular: Heart regular rate and rhythm Chest: Able to complete full sentences, no retractions, no tachypnea Abdomen: abdomen soft, tenderness to the superior umbilical area, non-distended, no organomegaly Musculoskeletal: Pulses present and equal in all extremities, no peripheral edema Motor: no focal deficits noted Neurological: CN II-XII grossly intact, no focal motor or sensory deficits noted Skin: Intact with no visualized rashes Psych: Normal affect and mood ED course: 50-year-old female presents to the emergency department for nausea, vomiting and diarrhea and. Umbilical abdominal pain. Patient is covered positive for the last 7 days. Vital signs upon arrival are within acceptable limits. Patient not hypoxic or showing signs of respiratory distress. Patient is a candidate for monoclonal antibodies.Computed tomography scan of the abdomen and pelvis shows no direct visualization of the appendix. Visit. Be findings consistent with enteritis. Laboratory evaluation obtained. Mild leukocytosis 12.1 with secondary to stress. Metabolic panel is within acceptable limits. Abdominal labs negative. Disposition options were discussed with patient she is agreeable for observation admission. Patient was seen and evaluated at the bedside by primary care physician. Dr. Teague is willing to accept patients care. - Related Data Home Medications Medication Instructions Recorded Confirmed Atorvastatin [Lipitor] 20 mg PO HS 12/13/20 05/25/21 Famotidine [Pepcid] 20 mg PO BID 12/13/20 05/25/21 Lisinopril-Hctz 10-12.5 mg 1 tab PO DAILY 12/13/20 05/25/21 [Zestoretic 10-12.5] metFORMIN HCL [Glucophage] 500 mg PO TID 12/13/20 05/25/21 Ascorbic Acid [Vitamin C] 1,000 mg PO DAILY 05/25/21 05/25/21 Cholecalciferol [Vitamin D3 (25 25 mcg PO DAILY 05/25/21 05/25/21 Mcg = 1000 Iu)] Dexamethasone 6 mg PO DAILY 05/25/21 05/25/21 Zinc 50 mg PO DAILY 05/25/21 05/25/21 Allergies Allergy/AdvReac Type Severity Reaction Status Date / Time No Known Allergies Allergy Verified 05/25/21 11:12 Review of Systems ROS Statement: Those systems with pertinent positive or pertinent negative responses have been documented in the HPI. ROS Other: All systems not noted in ROS Statement are negative. Past Medical History Past Medical History: Diabetes Mellitus, GERD/Reflux, Hyperlipidemia, Hypertension Additional Past Medical History / Comment(s): covid History of Any Multi-Drug Resistant Organisms: None Reported Past Surgical History: Uterine Ablation Additional Past Surgical History / Comment(s): right humerus ORIF. left acl repair. bilateral knee arthroscopy. Past Psychological History: No Psychological Hx Reported Smoking Status: Never smoker Past Alcohol Use History: Rare Past Drug Use History: None Reported General Exam Limitations: no limitations Course Vital Signs 05/25/21 10:35 Temperature 98.2 F Pulse Rate 91 Respiratory 18 Rate Blood Pressure 134/78 O2 Sat by Pulse 99 Oximetry Medical Decision Making - Lab Data Result diagrams: 05/25/21 11:00 05/25/21 11:00 Lab Results 05/25/21 05/25/21 Range/Units 11:00 11:00 WBC 12.1 H (3.8-10.6) k/uL RBC 4.45 (3.80-5.40) m/uL Hgb 12.3 (11.4-16.0) gm/dL Hct 37.0 (34.0-46.0) % MCV 83.2 (80.0-100.0) fL MCH 27.6 (25.0-35.0) pg MCHC 33.1 (31.0-37.0) g/dL RDW 14.2 (11.5-15.5) % Plt Count 425 (150-450) k/uL MPV 7.1 Neutrophils % 81 % Lymphocytes % 15 % Monocytes % 3 % Eosinophils % 1 % Basophils % 1 % Neutrophils # 9.7 H (1.3-7.7) k/uL Lymphocytes # 1.7 (1.0-4.8) k/uL Monocytes # 0.3 (0-1.0) k/uL Eosinophils # 0.1 (0-0.7) k/uL Basophils # 0.1 (0-0.2) k/uL Sodium 136 L (137-145) mmol/L Potassium 4.2 (3.5-5.1) mmol/L Chloride 102 (98-107) mmol/L Carbon Dioxide 22 (22-30) mmol/L Anion Gap 12 mmol/L BUN 18 H (7-17) mg/dL Creatinine 0.50 L (0.52-1.04) mg/dL Est GFR (CKD-EPI)AfAm >90 (>60 ml/min/1.73 sqM) Est GFR (CKD-EPI)NonAf >90 (>60 ml/min/1.73 sqM) Glucose 129 H (74-99) mg/dL Calcium 9.3 (8.4-10.2) mg/dL Magnesium 2.0 (1.6-2.3) mg/dL Total Bilirubin 0.3 (0.2-1.3) mg/dL AST 20 (14-36) U/L ALT 27 (4-34) U/L Alkaline Phosphatase 135 H (38-126) U/L Total Protein 7.2 (6.3-8.2) g/dL Albumin 4.2 (3.5-5.0) g/dL Lipase 98 (23-300) U/L Disposition Clinical Impression: Enteritis Disposition: ADMITTED IP TO THIS HOSP Condition: Fair Referrals: Sergio Teague MD [Primary Care Provider] - 1-2 days
[2021-05-25 11:07] LABS: Basophils # (A) 0.1 k/uL (0-0.2); Basophils % (A) 1 %; Eosinophils # (A) 0.1 k/uL (0-0.7); Eosinophils % (A) 1 %; HGB 12.3 gm/dL (11.4-16.0); Lymphocytes # (A) 1.7 k/uL (1.0-4.8); Lymphocytes % (A) 15 %; MCH 27.6 pg (25.0-35.0); MCHC 33.1 g/dL (31.0-37.0); MCV 83.2 fL (80.0-100.0); Mean Platelet Volume 7.1; Monocytes # (A) 0.3 k/uL (0-1.0); Monocytes % (A) 3 %; Neutrophils # (A) 9.7 k/uL (1.3-7.7); Neutrophils % (A) 81 %; Platelet Count 425 k/uL (150-450); RBC 4.45 m/uL (3.80-5.40); RDW 14.2 % (11.5-15.5); WBC 12.1 k/uL (3.8-10.6)
[2021-05-25 11:18] LABS: ALT 27 U/L (4-34); AST 20 U/L (14-36); African American GFR (CKD) >90 (>60 ml/min/1.73 sqM); Albumin 4.2 g/dL (3.5-5.0); Alkaline Phosphatase 135 U/L (38-126); Anion Gap 12 mmol/L; Blood Urea Nitrogen 18 mg/dL (7-17); Calcium 9.3 mg/dL (8.4-10.2); Carbon Dioxide 22 mmol/L (22-30); Chloride 102 mmol/L (98-107); Glucose 129 mg/dL (74-99); Lipase 98 U/L (23-300); Non-African American GFR(CKD) >90 (>60 ml/min/1.73 sqM); Potassium 4.2 mmol/L (3.5-5.1); Sodium 136 mmol/L (137-145); Total Bilirubin 0.3 mg/dL (0.2-1.3); Total Protein 7.2 g/dL (6.3-8.2)
[2021-05-25] MEDS ORDERED: SODIUM CHLORIDE 0.9% 500 ML 500 ML IV STA (11:53)
--- NOTE | 2021-05-25 12:20 | CT ---
EXAMINATION TYPE: CT abdomen pelvis w con DATE OF EXAM: 05/25/2021 COMPARISON: 12/13/2020 HISTORY: Right lower quadrant pain CT DLP: 2092.7 mGycm CONTRAST: CT scan of the abdomen and pelvis is performed without Oral Contrast and with IV Contrast, patient in jected with 100 mL of Isovue 300. FINDINGS: LUNG BASES-: No visible nodule. No infiltrate. Large fixed hiatal hernia noted. LIVER/GB: Hepatic steatosis. No calcified gallstones. No space occupying hepatic lesion. Biliary tr ee is of normal caliber. PANCREAS: No inflammation. No distinct mass. SPLEEN: No splenic enlargement. No lesion seen. ADRENALS: No nodule. No thickening. KIDNEYS/BLADDER: No hydronephrosis. No nephrolithiasis. No distinct renal mass. Urinary bladder g rossly unremarkable. BOWEL: The appendix is not clearly visualized. Fluid distended small bowel measuring up to 2.3 cm may reflect enteritis. No evidence for free air or abscess. GENITAL ORGANS: No gross abnormality. LYMPH NODES: No greater than 1cm abdominal or pelvic lymph nodes are appreciated. AORTA: No significant abnormality. OSSEOUS STRUCTURES: No significant abnormality is seen. OTHER: No significant additional abnormality is seen. IMPRESSION: 1. The appendix is not clearly visualized. Fluid distended small bowel measuring up to 2.3 cm may ref lect enteritis.
[2021-05-25] MEDS ORDERED: ONDANSETRON 4 MG/2 ML VIAL IVP PRN (12:28)
[2021-05-25] MEDS ORDERED: NALOXONE 0.4 MG/ML 1 ML VIAL IV PRN (12:28)
[2021-05-25] MEDS ORDERED: ACETAMINOPHEN TAB 325 MG TAB PO PRN (12:28)
[2021-05-25] MEDS ORDERED: MORPHINE SULFATE 4 MG/ML SYRINGE IV PRN (12:28)
[2021-05-25] MEDS: SODIUM CHLORIDE 0.9% 1,000 ML IV SCH (12:43)
[2021-05-25] MEDS ORDERED: CASIRIVIMAB (REGN10933) (EUA) 600 MG, IMDEVIMAB (REGN10987) (EUA) 600 MG in SODIUM CHLO... IVPB ONE (14:00)
[2021-05-25] MEDS ORDERED: SODIUM CHLORIDE 0.9% 50 ML IVPB ONE (14:30)
[2021-05-25] MEDS ORDERED: ATORVASTATIN 20 MG TAB PO SCH (21:00)
[2021-05-25] MEDS: FAMOTIDINE 20 MG TAB PO SCH (21:28)
[2021-05-26] MEDS: SODIUM CHLORIDE 0.9% 1,000 ML IV SCH (04:10)
[2021-05-26] MEDS ORDERED: ASCORBIC ACID 500 MG TAB PO SCH (09:00)
[2021-05-26] MEDS ORDERED: LISINOPRIL-HCTZ 10-12.5 MG 1 EACH TAB PO SCH (09:00)
[2021-05-26] MEDS ORDERED: ZINC SULFATE 220 MG CAP PO SCH (09:00)
[2021-05-26] MEDS ORDERED: CHOLECALCIFEROL 25 MCG (1000 IU) TABLET PO SCH (09:00)
[2021-05-26] MEDS: FAMOTIDINE 20 MG TAB PO SCH (09:04)
--- NOTE | 2021-05-26 12:42 | P.HPIM ---
History of Present Illness H&P Date: 05/25/21 HISTORY OF PRESENT ILLNESS: This is a 50-year-old white Egyptian female with a previous medical history significant for hypertension and hypertensive cardio vascular disease, hyperlipidemia, history of polycystic ovarian syndrome, patient was infected with COVID-19 back a week ago last Wednesday at that time she was started on Decadron 6 putting gram orally once every day for 10 days along with Z-Silvano she just finished her Z-Silvano, and she developed to have all the sinus symptoms of COVID-19 except for respiratory including the body aches, loss of smell loss of taste generalized weakness woke up today in the morning with significant abdominal pain in the umbilical area transitioned to the right lower quadrant, she developed to have a significant abdominal pain associated with nausea vomiting and diarrhea she contacted her mom and then finally she called my office and asked the patient to go to the emergency department for evaluation at [facility] patient was seen in the ER she was started on IV fluid resuscitation, her laboratory evaluation showed leukocytosis, her oxygen saturation was 99%, she was not in acute respiratory distress at this time, however she was complaint significant abdominal pain in the right lower quadrant she underwent computed tomography scan of the abdomen and pelvis with IV and oral contrast, the results of which still pending at the time of dic tation, reviewed CAT scan of the emergency room physician showed possible colitis, awaiting the final result of the computed tomography scan in order to make a final decision, patient will be receiving monoclonal antibodies in the ER prior to her admission to the hospital. REVIEW OF SYSTEMS: Constitutional: No documented fever, no chills, no night sweats. No weight change. Positive for weakness, positive for fatigue or lethargy. No daytime sleepiness. HEENT: No headache. No blurred vision or double vision, no loss of vision. No loss of Hearing, no ringing in the ears, no dizziness. No nasal drainage or congestion. No epistaxis. No sore throat. Lungs: No shortness of breath, no cough, no sputum production. No wheezing. Reports dyspnea with activity. Cardiovascular: No chest pain, no lower extremity edema. No palpitations. No paroxysmal nocturnal dyspnea. No orthopnea. No lightheadedness or dizziness. No syncopal episodes. Abdominal: Reports abdominal pain. Positive for nausea and vomiting, positive for diarrhea. No constipation. No bloody or tarry stools reports loss of appetite. Genitourinary: No dysuria, increased frequency, urgency. No urinary retention. Musculoskeletal: Positive for myalgias. No muscle weakness, no gait dysfunction, no frequent falls. No back pain. No neck pain. Integumentary: No wounds, no lesions. No rash or pruritus. No unusual bruising. No change in hair or nails. Neurologic: No aphasia. No facial droop. No change in mentation. No head injury. positive for headache. No paralysis. No paresthesia. Psychiatric: No depression. No anxiety. No mood swings. Endocrine: No abnormal blood sugars. No weight change. PAST MEDICAL HISTORY: Hypertension and hypertensive cardiovascular disease. Hyperlipidemia. Polycystic ovarian syndrome. Obesity with obstructive sleep apnea. vitamin D deficiency. PAST SURGICAL HISTORY: Uterine ablation Left ACL repair Bilateral arthroscopic knee surgery Right humerus ORIF. SOCIAL HISTORY: Patient has a history of smoking, she denies any history of unusual abuse, she drinks occasionally, she lives with her . FAMILY HISTORY: Father is 82-year-old with a history of hypertension, hyperlipidemia, coronary artery disease, as well as diabetes mellitus type 2 with chronic kidney disease, he himself contracted Covid and he did receive monoclonal antibodies, her mother is in her 80s with hypertension and hyperlipidemia, patient has a daughter and son no major medical problems. Patient has one brother with bicuspid aortic valve status post aortic valve replacement. PHYSICAL EXAMINATION: General: Soc-[id number]-[id number] white female can female laying down in bed in minimal d istress. HEENT: Head is atraumatic, normocephalic, pupils were equal round reactive to light and recommendation, extraocular muscle movement were intact, sclera nonicteric, conjunctivae were pale, mucous membranes of the mouth are somewhat dry. Neck: Supple, no JVP, normal carotid upstroke bilaterally, no lymphadenopathy. Chest: Decreased breath sounds at the bases, few rhonchi, no extremity wheezes, no chest wall tenderness, no intercostal retractions. Heart: First heart sound is normal, second heart sounds normal Abdomen: Soft, moderate tenderness in the right lower quadrant , nondistended, positive bowel sounds. Extremities: There is no edema no calf tenderness DP +2 bilaterally. Neurologic examination: Patient is awake alert and oriented X3, cranial nerves II-12 appear grossly intact, muscle power were 5 out of 5 in upper extremities and 5 out of 5 in bilateral lower extremities, deep tendon reflexes normal bilaterally. ASSESSMENT AND PLAN: 1. Right lower quadrant abdominal pain likely related to colitis rule out COVID-19 complications including ischemic colitis. Continue patient IV fluid resuscitation the form of normal saline at 125 mL an hour, continue patient on morphine 2 mg IV push every 4 hours as needed, continue Zofran 4 mg IV push every 4 hours as needed, monitor the patient over the next 24 hours, start the patient on Zosyn 3.375 g IV piggyback every 6 hours. 2. Recent COVID-19 7 days ago status post Decadron 6 minute gram orally once every day and Z-Silvano, start the patient on monoclonal antibodies 1. 3. Hypertension and hypertensive cardio vascular disease. Continue patient on lisinopril 10/12.5 mg orally once every day. Monitor the patient blood pressure very closely. 4. Hyperlipidemia. Continue patient on Lipitor 20 mg orally once every day monitor the patient's lipid panel, keep LDL 55-70. 5. Polycystic ovarian syndrome. Discontinue metformin as the patient did receive a contrast for the next 48 hours. 6. Vitamin D deficiency. Continue patient on vitamin D supplement 7. DVT prophylaxis. Start the patient on Lovenox 40 mg subcutaneously every 24 hours. 8. GI prophylaxis. Protonix 40 mg IV push every 24 hours. 9. Admit to inpatient. Estimated length of stay 2 midnights. 10. Patient is full code. Past Medical History Past Medical History: Diabetes Mellitus, GERD/Reflux, Hyperlipidemia, Hypertension Additional Past Medical History / Comment(s): covid History of Any Multi-Drug Resistant Organisms: None Reported Past Surgical History: Uterine Ablation Additional Past Surgical History / Comment(s): right humerus ORIF. left acl repair. bilateral knee arthroscopy. Past Psychological History: No Psychological Hx Reported Smoking Status: Never smoker Past Alcohol Use History: Rare Past Drug Use History: None Reported Medications and Allergies Home Medications Medication Instructions Recorded Confirmed Type Atorvastatin [Lipitor] 20 mg PO HS 12/13/20 05/25/21 History Famotidine [Pepcid] 20 mg PO BID 12/13/20 05/25/21 History Lisinopril-Hctz 10-12.5 mg 1 tab PO DAILY 12/13/20 05/25/21 History [Zestoretic 10-12.5] metFORMIN HCL [Glucophage] 500 mg PO TID 12/13/20 05/25/21 History Ascorbic Acid [Vitamin C] 1,000 mg PO DAILY 05/25/21 05/25/21 History Cholecalciferol [Vitamin D3 (25 25 mcg PO DAILY 05/25/21 05/25/21 History Mcg = 1000 Iu)] Dexamethasone 6 mg PO DAILY 05/25/21 05/25/21 History Zinc 50 mg PO DAILY 05/25/21 05/25/21 History Allergies Allergy/AdvReac Type Severity Reaction Status Date / Time No Known Allergies Allergy Verified 05/25/21 11:12 Physical Exam Vitals: Vital Signs Temp Pulse Resp BP Pulse Ox 05/25/21 10:35 98.2 F 91 18 134/78 99 Intake and Output 05/24/21 05/25/21 05/25/21 22:59 06:59 14:59 Other: Weight 108.862 kg Results CBC & Chem 7: 05/25/21 11:00 05/25/21 11:00 Labs: Abnormal Lab Results - Last 24 Hours (Table) 05/25/21 05/25/21 Range/Units 11:00 11:00 WBC 12.1 H (3.8-10.6) k/uL Neutrophils # 9.7 H (1.3-7.7) k/uL Sodium 136 L (137-145) mmol/L BUN 18 H (7-17) mg/dL Creatinine 0.50 L (0.52-1.04) mg/dL Glucose 129 H (74-99) mg/dL Alkaline Phosphatase 135 H (38-126) U/L
[2021-05-26] MEDS ORDERED: ENOXAPARIN 40 MG/0.4 ML SYRINGE SQ SCH (12:45)
[2021-05-26 13:36] LABS: Basophils % (A) 1 %; Eosinophils # (A) 0.1 k/uL (0-0.7); Eosinophils % (A) 1 %; HCT 35.9 % (34.0-46.0); HGB 11.5 gm/dL (11.4-16.0); Lymphocytes # (A) 3.3 k/uL (1.0-4.8); Lymphocytes % (A) 35 %; MCH 27.6 pg (25.0-35.0); MCHC 31.9 g/dL (31.0-37.0); MCV 86.3 fL (80.0-100.0); Mean Platelet Volume 7.1; Monocytes # (A) 0.5 k/uL (0-1.0); Monocytes % (A) 6 %; Neutrophils # (A) 5.4 k/uL (1.3-7.7); Neutrophils % (A) 57 %; Platelet Count 375 k/uL (150-450); RBC 4.15 m/uL (3.80-5.40); RDW 13.9 % (11.5-15.5); WBC 9.5 k/uL (3.8-10.6)
[2021-05-26 13:49] LABS: ALT 22 U/L (4-34); AST 18 U/L (14-36); African American GFR (CKD) >90 (>60 ml/min/1.73 sqM); Albumin 3.8 g/dL (3.5-5.0); Albumin/Globulin Ratio 1.4; Alkaline Phosphatase 113 U/L (38-126); Anion Gap 11 mmol/L; Blood Urea Nitrogen 14 mg/dL (7-17); Calcium 9.2 mg/dL (8.4-10.2); Carbon Dioxide 23 mmol/L (22-30); Chloride 100 mmol/L (98-107); Globulin 2.8 g/dL; Glucose 125 mg/dL (74-99); Non-African American GFR(CKD) >90 (>60 ml/min/1.73 sqM); Potassium 3.4 mmol/L (3.5-5.1); Sodium 134 mmol/L (137-145); Total Bilirubin 0.3 mg/dL (0.2-1.3); Total Protein 6.6 g/dL (6.3-8.2)
[2021-05-26 15:26] VITALS: BP 114/76; PULSE 71; RESP 18; TEMP 98.5
[2021-05-26 15:43] LABS: Erythrocyte Sedimentation Rate 17 mm/hr (0-20)
[2021-05-26] MEDS ORDERED: PIPERACILLIN-TAZOBACTAM 3.375 GM in SODIUM CHLORIDE 0.9% 100 ML IVPB SCH (16:00)
--- NOTE | 2021-05-28 16:29 | P.DS ---
Providers Date of admission: 05/25/21 12:29 Expected date of discharge: 05/26/21 Attending physician: Sergio Teague Primary care physician: Sergio Teague Hospital Course: HISTORY OF PRESENT ILLNESS: This is a 50-year-old white Indonesian female with a previous medical history significant for hypertension and hypertensive cardio vascular disease, hyperlipidemia, history of polycystic ovarian syndrome, patient was infected with COVID-19 back a week ago last Wednesday at that time she was started on Decadron 6 putting gram orally once every day for 10 days along with Z-Silvano she just finished her Z-Silvano, and she developed to have all the sinus symptoms of COVID-19 except for respiratory including the body aches, loss of smell loss of taste generalized weakness woke up today in the morning with significant abdominal pain in the umbilical area transitioned to the right lower quadrant, she developed to have a significant abdominal pain associated with nausea vomiting and diarrhea she contacted her mom and then finally she called my office and asked the patient to go to the emergency department for evaluation at [facility] patient was seen in the ER she was started on IV fluid resuscitation, her laboratory evaluation showed leukocytosis, her oxygen saturation was 99%, she was not in acute respiratory distress at this time, however she was complaint significant abdominal pain in the right lower quadrant she underwent computed tomography scan of the abdomen and pelvis with IV and oral contrast, the results of which still pending at the time of dictation, reviewed CAT scan of the emergency room physician showed possible colitis, awaiting the final result of the computed tomography scan in order to make a final decision, patient will be receiving monoclonal antibodies in the ER prior to her admission to the hospital. 05/27: Patient did receive monoclonal antibodies in the emergency department, and she was admitted to the hospital for evaluation for abdominal pain, her computed tomography scan of the abdomen and pelvis with contrast did not show evidence of any colitis it did show possible enteritis without actual colitis likely a side effect of ovoid 19 infection, patient's pain a lot better today, she does not even need to go on IV antibiotic at this time, she does not need any oral antibiotic, she continues with supportive care, she has not received any pain medicine and she can be discharged home and stay on soft diet follow-up with me at about a week from now. discharge diagnoses : 1. COVID-19 2. Abdominal pain secondary to enteritis. 3. Hypertension and hypertensive cardiovascular disease. 4. Hyperlipidemia. 5. Polycystic ovarian syndrome. 6. Obesity. 7. Vitamin D deficiency. 8. Asthenia due to Covid Patient Condition at Discharge: Fair Plan - Discharge Summary Discharge Rx Participant: Yes New Discharge Prescriptions: Continue Lisinopril-Hctz 10-12.5 mg [Zestoretic 10-12.5] 1 tab PO DAILY Atorvastatin [Lipitor] 20 mg PO HS Ascorbic Acid [Vitamin C] 1,000 mg PO DAILY Zinc 50 mg PO DAILY Famotidine [Pepcid] 20 mg PO BID Cholecalciferol [Vitamin D3 (25 Mcg = 1000 Iu)] 25 mcg PO DAILY Dexamethasone 6 mg PO DAILY Discontinued metFORMIN HCL [Glucophage] 500 mg PO TID Discharge Medication List Atorvastatin [Lipitor] 20 mg PO HS 12/13/20 [History] Famotidine [Pepcid] 20 mg PO BID 12/13/20 [History] Lisinopril-Hctz 10-12.5 mg [Zestoretic 10-12.5] 1 tab PO DAILY 12/13/20 [History] Ascorbic Acid [Vitamin C] 1,000 mg PO DAILY 05/25/21 [History] Cholecalciferol [Vitamin D3 (25 Mcg = 1000 Iu)] 25 mcg PO DAILY 05/25/21 [History] Dexamethasone 6 mg PO DAILY 05/25/21 [History] Zinc 50 mg PO DAILY 05/25/21 [History] Follow up Appointment(s)/Referral(s): Sergio Teague MD [Primary Care Provider] - 05/29/21 1:30 pm Patient Instructions/Handouts: Coronavirus Disease 2019 (COVID-19) Discharge Disposition: HOME SELF-CARE
== END 2021-05-26 17:34 | disposition home or self-care (01) ==
LOC: EC 10:24 → 4SSUR 12:29
PROVIDERS: ADMIT Internal Medicine; ATTEND Internal Medicine
DX: U07.1 COVID-19 (principal); K52.9 Noninfective gastroenteritis and colitis, unspecified; E11.9 Type 2 diabetes mellitus without complications; I11.9 Hypertensive heart disease without heart failure; E78.5 Hyperlipidemia, unspecified; K21.9 Gastro-esophageal reflux disease without esophagitis; K44.9 Diaphragmatic hernia without obstruction or gangrene; E28.2 Polycystic ovarian syndrome; E66.9 Obesity, unspecified; G47.33 Obstructive sleep apnea (adult) (pediatric); E55.9 Vitamin D deficiency, unspecified; R53.1 Weakness; Z68.38 Body mass index [BMI] 38.0-38.9, adult; Z79.84 Long term (current) use of oral hypoglycemic drugs; Z79.52 Long term (current) use of systemic steroids; Z79.899 Other long term (current) drug therapy; Z87.891 Personal history of nicotine dependence; Z98.890 Other specified postprocedural states; Z83.3 Family history of diabetes mellitus; Z83.49 Family history of other endocrine, nutritional and metabolic diseases; Z84.1 Family history of disorders of kidney and ureter; Z83.1 Family history of other infectious and parasitic diseases
CPT/HCPCS: 96372; 96374; 96375; 99285; 36415; 80053 ×2; 85652; 83690; 83735; 85025 ×2; 74177; G0378 ×2; M0243; J2270; J2405; J1650; Q9967; Q0243

== ENCOUNTER 2021-08-15 10:43 | Day surgery (SDC) | payer BC ==
[2021-08-13 09:36] VITALS: BMI 41.1
[~2021-08-15 10:43] MED LIST: LACTATED RINGERS 1,000 ML IV SCH; LIDOCAINE 1% (10MG/ML) FOR IV START INTRADERMA PRN
[2021-08-15 11:10] VITALS: TEMP 117.1
[2021-08-15] MEDS ORDERED: LACTATED RINGERS 1,000 ML IV ONE (11:22)
[2021-08-15] MEDS ORDERED: PROPOFOL 10 MG/ML 20 ML VIAL IV ONE (11:40)
[2021-08-15] MEDS ORDERED: KETAMINE 10 MG/ML 20 ML VIAL ONE (11:40)
[2021-08-15] MEDS ORDERED: LIDOCAINE 1% INJ 10MG/ML (20 ML MDV) ONE (11:40)
--- NOTE | 2021-08-15 12:07 | P.PCN ---
Date of Procedure: 08/15/21 Procedure(s) Performed: Brief history: Patient is a pleasant scheduled for an elective upper endoscopy as well as colonoscopy as a part of evaluation of long-standing history of GERD and iron deficiency anemia. Procedure performed: Esophagogastroduodenoscopy with biopsy and argon plasma coagulation Colonoscopy Preoperative diagnosis: Anesthesia: MAC Procedure: After informed consent was obtained from the patient was brought into the endoscopy unit and IV sedation was administered by anesthesia under continuous monitoring. Initially upper endoscopy was done. The Olympus GF 160 video endoscope was inserted inserted into the mouth and esophagus intubated without any difficulty and was gradually advanced into the stomach and duodenum and carefully examined. The second part of the duodenum appeared normal. The bulb of the duodenum there were 3 small angiectasia which were oozing that they c auterized using argon plasma coagulation. The scope was then withdrawn into the stomach adequately insufflated with air and upon careful examination the antrum had mild gastritis and biopsies were done from this area. The body, cardia and fundus appeared normal. moderate left-sided noted. There were multiple Suresh erosions noted at the diaphragmatic impression. The scope was then withdrawn into the esophagus. The GE junction was located at 30 cm to the incisors. It appeared regular with2 superficial erosions consistent with LA grade B reflux esophagitis.est of the esophagus appeared normal. Patient tolerated the procedure well. At this time the patient continued to remain sedation. Initial digital rectal examination was normal. Olympus CF 160 video colonoscope was then inserted into the rectum and gradually advanced to the cecum without any difficulty. Careful examination was performed as the scope was gradually being withdrawn. The prep was excellent. The cecum, ascending colon, transverse colon, descending colon, sigmoid colon and rectum appeared normal. Retroflexion was performed in the rectum and no lesions were noted. Patient tolerated the procedure well. Impression: 1. Upper endoscopy revealed large hiatal hernia with Suresh erosions, scattered duodenal AVMs status post argon plasma coagulation and mild reflux esophagitis 2. Coloscopy was within normal limits with no evidence of colorectal neoplasia Recommendations: Findings of this examination were discussed with the patient as well as her family. She was advised to follow with the biopsy results. She will continue with Pepcid 20 mg twice daily and follow antireflux measures. She was advised to have a repeat screening colonoscopy in 10 years.
[2021-08-15 12:27] VITALS: BP 117/76; PULSE 78; RESP 16
== END 2021-08-15 13:03 | disposition home or self-care (01) ==
LOC: ORWHC2ENDO 10:43
PROVIDERS: ATTEND Internal Medicine Gastroenterology
DX: I99.8 Other disorder of circulatory system (principal); K21.00 Gastro-esophageal reflux disease with esophagitis, without bleeding; K44.9 Diaphragmatic hernia without obstruction or gangrene; D50.9 Iron deficiency anemia, unspecified; K21.9 Gastro-esophageal reflux disease without esophagitis; D72.820 Lymphocytosis (symptomatic); K29.50 Unspecified chronic gastritis without bleeding; Z79.84 Long term (current) use of oral hypoglycemic drugs; Z79.899 Other long term (current) drug therapy
CPT/HCPCS: 81025; 88305; 45378; 43239; 43270; J2001; J2704

== ENCOUNTER → 2021-09-15 | Outpatient (CLI) | payer BC ==
--- NOTE | 2021-09-15 20:23 | CT ---
EXAMINATION TYPE: CT heart w calcium score DATE OF EXAM: 09/15/2021 COMPARISON: None. HISTORY: Screening for cardiovascular disorder. 213.9 CT DLP: 194.5 mGycm Automated exposure control for dose reduction was used. CT CALCIUM SCORING Coronary calcium is a marker for plaque (fatty deposits) in a blood vessel or atherosclerosis (harden ing of the arteries). The presence and amount of calcium detected in a coronary artery by the CT sca n, indicates the presence and amount of atherosclerotic plaque. These calcium deposits appear years before the development of heart disease symptoms such as chest pain and shortness of breath. A calcium score is computed for each of the coronary arteries based upon the volume and density of th e calcium deposits. This can be referred to as your calcified plaque burden. It does not correspond directly to the percentage of narrowing in the artery but does correlate with the severity of the un derlying coronary atherosclerosis. PROCEDURE TECHNIQUE - Prospective Gating was used. Slice thickness: 3mm. Density threshold (HU): 130, Pixel threshold: 3, Algorithm: discrete. RESULTS Region: LM Calcium Score ([place]): 0 Region: RCA Calcium Score ([place]): 0 Region: LAD Calcium Score ([place]): 0 Region: CX Calcium Score ([place]): 0 Incidental findings is moderate-sized fixed hiatal hernia. TOTAL CALCIUM SCORE: 0 IMPRESSION: Calcium Score: 0 Implication: No identifiable plaque. Risk of Coronary Artery Disease: Very low, generally less than 5%. CALCIUM SCORE IMPLICATION RISK OF C ORONARY ARTERY DISEASE 0 No identifiable plaque Very low, generally less than 5% 1-10 Minimal identifiable plaque Very unlikely, less than 10% 11-100 Definite, at least mild atherosclerotic plaque Mild or m inimal coronary narrowings likely 101-400 Definite, at least moderate atherosclerotic plaque Mild coronary ar maritza disease highly likely, significant narrowing possible 401 or Higher Extensive atherosclerotic plaque High lik elihood of at least one significant coronary narrowing
== END | disposition home or self-care (01) ==
LOC: RADCTMAIN 14:20
PROVIDERS: ATTEND Internal Medicine
DX: Z13.6 Encounter for screening for cardiovascular disorders (principal)
CPT/HCPCS: 75571

== ENCOUNTER → 2022-11-20 | Outpatient (CLI) | payer BC ==
[2022-11-20 09:12] LABS: African American GFR (CKD) >90 (>60 ml/min/1.73 sqM); Blood Urea Nitrogen 16 mg/dL (7-17); Non-African American GFR(CKD) >90 (>60 ml/min/1.73 sqM)
--- NOTE | 2022-11-22 19:29 | CT ---
EXAMINATION TYPE: CT urogram wo/w con CT DLP: 3561 mGycm, Automated exposure control for dose reduction was used. DATE OF EXAM: 11/20/2022 10:17 AM COMPARISON: 05/25/2021 CT CLINICAL INDICATION:Female, 52 years old with history of R31.0 gross hematuria; PHH, gross hematuria. hx of kidney stones. TECHNIQUE: Urogram with imaging of the abdomen and pelvis. Coronal and sagittal reformats were performed. 2D and 3D reconstructions are performed to assist visualization of the urinary tract on a separate workstat ion. Contrast used:100 mL of Isovue 300 without and with IV Contrast, Oral contrast used: None. FINDINGS: LOWER CHEST: Large hiatal hernia. GENITOURINARY: RIGHT KIDNEY AND URETER: No calculi. No hydronephrosis or hydroureter. No renal mass or other lesions . No urothelial lesions: no filling defect, dilation, stricture or wall thickening. LEFT KIDNEY AND URETER: No calculi. No hydronephrosis or hydroureter. No renal mass or other lesions. No urothelial lesions: no filling defect, dilation, stricture or wall thickening. URINARY BLADDER: Moderately well distended. Limited evaluation secondary to partial filling of the bl adder with excreted IV contrast. No calculi or obvious mass. REPRODUCTIVE: Unremarkable. ABDOMEN LIVER: Unremarkable. GALLBLADDER AND BILE DUCTS: Unremarkable PANCREAS: Unremarkable. SPLEEN: Unremarkable. ADRENAL GLANDS: Unremarkable. STOMACH AND BOWEL: . No evidence of bowel obstruction. PERITONEUM: No evidence of pneumoperitoneum, free fluid, or adenopathy. VASCULATURE: No evidence of aortic aneurysm. MUSCULOSKELETAL: No acute osseous abnormalities, multilevel disc degeneration changes of the spine. LYMPH NODES: No gross evidence for lymphadenopathy. SOFT TISSUE/ABDOMINAL WALL: Fat-containing umbilical hernia. IMPRESSION: 1. No evidence of urolithiasis or renal/urothelial neoplasm. 2. Large hiatal hernia.
== END | disposition home or self-care (01) ==
LOC: RADCTMAIN 08:19
PROVIDERS: ATTEND Urology
DX: K44.9 Diaphragmatic hernia without obstruction or gangrene (principal); R31.0 Gross hematuria
CPT/HCPCS: 82565; 84520; 74178; 36415; 74400; Q9967

== ENCOUNTER → 2024-09-26 | Outpatient (CLI) | payer BC ==
--- NOTE | 2024-09-26 15:51 | US ---
EXAMINATION TYPE: US kidneys/renal and bladder DATE OF EXAM: 09/26/2024 COMPARISON: CT 04/24/2023 CLINICAL INDICATION: Female, 54 years old with history of N13.30 UNSPECIFIED HYDRONEPHROSIS; Hydronep hrosis. TECHNIQUE: Grayscale imaging of the bilateral kidneys and urinary bladder: FINDINGS: EXAM MEASUREMENTS: Right Kidney: 11.8 x 4.9 x 5.0 cm Left Kidney: 12.1 x 4.5 x 5.3 cm Right Kidney: *Prominent renal pelvis Left Kidney: *Appearance of minimal hydro Bladder: Slightly limited, no abnormalities seen. Bilateral Jets seen: Yes Incidental finding: Hypoechoic area seen within midline pelvis anterior to uterus versus connected to uterus?: 2.5 x 3.3 x 2.4 cm. IMPRESSION: 1. There may be some mild left hydronephrosis. No obstructing etiology is identified. 2. Hypoechoic area anterior to the uterus within the pelvis. Complex cyst could be considered. Pelvic ultrasound Follow-up can be performed. [facility], , 09/26/2024 3:49 PM
== END | disposition home or self-care (01) ==
LOC: RADUSWWP 15:07
PROVIDERS: ATTEND Urology
DX: N13.30 Unspecified hydronephrosis (principal)
CPT/HCPCS: 76770